=== PATIENT | male | born 1975 | race Caucasian/White ===

== ENCOUNTER 2016-06-08 15:48 | Emergency (ER) | payer BC ==
[2016-06-08 15:55] VITALS: BP 147/91
--- NOTE | 2016-06-08 16:44 | RAD ---
Indication: Right rib pain. 2 views of the right ribs demonstrates fracture of the right ninth rib posterior laterally. No significant displacement is noted. Additional 2 views of the chest demonstrates no pneumothorax. Lung roberts are clear. No pneumothorax is noted. IMPRESSION: Nondisplaced fracture of the right ninth rib. No pneumothorax is noted.
[2016-06-08] MEDS ORDERED: oxyCODONE/Acetamin 5/325 MG* TAB PO ONE (16:45)
--- NOTE | 2016-06-08 16:45 | ED ---
HPI Chest Pain - HPI Summary HPI Summary: Patient presents to ED with CC of right sided rib pain after a coughing fit 4 days ago. He states the pain is over the right ribs and radiates to the back. Pain has been stable until this morning when rolling over in bed. Pain is 10/ 10 and feels sharp. He has not tried anything for relief. Coughing and laying down makes the pain worse, nothing has made the pain better. Denies fever. Denies urinary symptoms. He has never had a broken rib before. - History of Current Complaint Chief Complaint: EDChestWallPain Time Seen by Provider: 06/08/16 15:57 Hx Obtained From: Patient Onset/Duration: Started Days Ago - 4 Timing: Intermittent Initial Severity: Moderate Current Severity: Severe Pain Intensity: 8 Pain Scale Used: 0-10 Numeric Chest Pain Location: Discrete at: - right sided chest radiates to back Chest Pain Radiates: Yes Chest Pain Radiates To:: Back Character: Dull/Aching Aggravating Factor(s): Position, Movement, Deep Breaths Alleviating Factor(s): Nothing Associated Signs and Symptoms: Positive: Cough - Risk Factors Pulmonary Embolism Risk Factors: Negative TAD Risk Factors: Negative - Allergy/Home Medications Allergies/Adverse Reactions: Allergies Allergy/AdvReac Type Severity Reaction Status Date / Time No Known Allergies Allergy Verified 06/08/16 16:57 PMH/Surg Hx/FS Hx/Imm Hx Previously Healthy: Yes Infectious Disease History: No Infectious Disease History: Denies: Traveled Outside the [place] in Last 30 Days - Social History Occupation: Employed Full-time Lives: With Family Alcohol Use: None Hx Substance Use: No Substance Use Type: Reports: None Hx Tobacco Use: Yes Smoking Status (MU): Former Smoker Review of Systems Constitutional: Negative Eyes: Negative Cardiovascular: Negative Positive: Shortness Of Breath, Cough Gastrointestinal: Negative Positive: no symptoms reported, see HPI Positive: Myalgia - right sided rib pain radiating to right back Skin: Negative Neurological: Negative All Other Systems Reviewed And Are Negative: Yes Physical Exam Triage Information Reviewed: Yes Vital Signs On Initial Exam: Initial Vitals Temp Pulse Resp BP Pulse Ox 97.8 F 108 16 147/91 97 06/08/16 15:51 06/08/16 15:51 06/08/16 15:51 06/08/16 15:51 03/12/17 15:51 Vital Signs Reviewed: Yes Appearance: Positive: Pain Distress Skin: Positive: Warm, Skin Color Reflects Adequate Perfusion Eyes: Positive: EOMI, Conjunctiva Clear Neck: Positive: Supple, No Lymphadenopathy Respiratory/Lung Sounds: Positive: Breath Sounds Present Cardiovascular: Positive: Normal, RRR Abdomen Description: Positive: Nontender, Soft Bowel Sounds: Positive: Present Musculoskeletal: Positive: Pain @ - right rib Neurological: Positive: Sensory/Motor Intact, Speech Normal Psychiatric: Positive: Normal - [place] Coma Scale Coma Scale Total: 15 Diagnostics - Vital Signs Vital Signs Temp Pulse Resp BP Pulse Ox 06/08/16 15:51 97.8 F 108 16 147/91 97 - Laboratory Lab Statement: Any lab studies that have been ordered have been reviewed, and results considered in the medical decision making process. - Radiology No standard instances Xray Interpretation: Positive (See Comments) Radiology Interpretation Completed By: Radiologist - IMPRESSION: Nondisplaced fracture of the right ninth rib. No pneumothorax is noted. Chest Pain Course/Dx - Course Course Of Treatment: Patient sent for rib and chest xray. Xray reveals: IMPRESSION: Nondisplaced fracture of the right ninth rib. No pneumothorax is noted. Patient given norco for relief and made aware of results. Ibuprofen encouraged. Prescription for pain medication sent. Follow up with PCP. Patient agreeable to plan. - Chest Pain Differential Diagnosis/HQI/PQRI: CHF, Chest Wall, Other: - rib - Diagnoses Provider Diagnoses: Fracture, rib Discharge - Discharge Plan Condition: Stable Disposition: HOME Prescriptions: Hydrocodone/Acetamin 10/325(NF [[place] 10/325 (NF)] 1 tab PO Q6H #20 tab MDD 4 Patient Education Materials: Rib Fracture (ED) Forms: *Work Release Referrals: Kevin ZAVALA,Mich Metcalf [Primary Care Provider] - Additional Instructions: Use moist heat to the area. Ibuprofen 600mg three times daily for pain and inflammation. For breakthrough pain not well controlled with ibuprofen, you may use your prescription medication. Follow up with your PCP. This may take several weeks to heal. If you experience any shortness of breath, come back to ED immediately.
== END 2016-06-08 17:49 | disposition home or self-care (01) ==
LOC: ED 15:48
DX: S22.31XA Fracture of one rib, right side, initial encounter for closed fracture (principal); R07.81 Pleurodynia; R05 Cough; R06.02 Shortness of breath; Z87.891 Personal history of nicotine dependence; X58.XXXA Exposure to other specified factors, initial encounter; Y93.9 Activity, unspecified; Y92.9 Unspecified place or not applicable
CPT/HCPCS: 99282; A9270-GY

== ENCOUNTER 2018-04-03 07:47 | Emergency (ER) | payer BC ==
[2018-04-03 08:05] VITALS: BP 138/87
--- NOTE | 2018-04-03 08:12 | UC ---
Throat Pain/Nasal Ervin HPI - HPI Summary HPI Summary: Started w/ 1 week of URI symptoms. Used his CPAP machine and then started to get sinus pressure, nasal discharge, 2 days of a sore throat which is now gone. Reports fever in the 100 range but cannot recall exact number. - History of Current Complaint Chief Complaint: UCRespiratory Stated Complaint: SINUS ISSUE Time Seen by Provider: 04/03/18 08:02 Hx Obtained From: Patient Pain Intensity: 0 Pain Scale Used: 0-10 Numeric Cough: Productive Associated Signs & Symptoms: Positive: Sinus Discomfort, Nasal Discharge, Fever. Negative: FB Sensation, Wheezing, Vomiting, Rash - Allergies/Home Medications Allergies/Adverse Reactions: Allergies Allergy/AdvReac Type Severity Reaction Status Date / Time No Known Allergies Allergy Verified 04/03/18 08:05 Home Medications: Home Medications Guaifenesin/Pseudoephedrne HCl [Mucinex D ER Tablet] 1 each PO DAILY PRN [History Confirmed 04/03/18] Ibuprofen TAB* [Advil TAB*] 200 mg PO Q6H PRN 04/03/18 [History Confirmed ] PMH/Surg Hx/FS Hx/Imm Hx Previously Healthy: Yes Respiratory History: Other - DUSTIN - Surgical History Surgical History: None - Social History Alcohol Use: Rare Substance Use Type: None Smoking Status (MU): Former Smoker Type: eCigarettes - Immunization History Most Recent Influenza Vaccination: none this year Review of Systems All Other Systems Reviewed And Are Negative: Yes Constitutional: Positive: Fever. Negative: Chills, Fatigue Skin: Negative: Rash ENT: Positive: Sore Throat, Nasal Discharge, Sinus Congestion, Sinus Pain/ Tenderness. Negative: Ear Ache Respiratory: Positive: Cough. Negative: Shortness Of Breath Cardiovascular: Negative: Chest Pain Gastrointestinal: Negative: Vomiting, Diarrhea Motor: Negative: Weakness Neurological: Negative: Headache Physical Exam Triage Information Reviewed: Yes Appearance: Well-Appearing Vital Signs: Initial Vital Signs Temp 98.6 F 04/03/18 08:03 Pulse 81 04/03/18 08:03 Resp 14 04/03/18 08:03 BP 138/87 04/03/18 08:03 Pulse Ox 97 04/03/18 08:03 Vital Signs Reviewed: Yes Eyes: Positive: Conjunctiva Clear ENT: Positive: Pharynx normal, Nasal congestion, TMs normal, Uvula midline. Negative: Sinus tenderness Neck exam: Normal Respiratory Exam: Normal Cardiovascular Exam: Normal Skin: Negative: Rashes Throat Pain/Nasal Course/Dx - Course Assessment/Plan: URI symptoms evolving into sinusitis over the past week. Afebrile today and vitals good. Exam was unremarkable. did not get flu shot this year but low liklihood of this. Likely viral etiology but offered antibiotics since he was asking. We did discuss the risks of over use of antibx and the chances of this not helping. He has appt w/ pulm re: cpap in 2 days which I encouraged him to follow up. - Differential Dx/Diagnosis Differential Diagnosis/HQI/PQRI: Influenza, Pharyngitis, URI Provider Diagnosis: Sinusitis Discharge - Sign-Out/Discharge Documenting (check all that apply): Patient Departure All imaging exams completed and their final reports reviewed: No Studies - Discharge Plan Condition: Good Disposition: HOME Prescriptions: Amoxicillin/Clavulanate TAB* [Augmentin TAB 875*] 875 mg PO BID 5 Days #10 tab Patient Education Materials: Sinusitis (ED) Referrals: Kevin ZAVALA,Mich Metcalf [Primary Care Provider] - Additional Instructions: I do not think you have a bacterial infection but I understand if you want to use the antibiotics. We reviewed the risk of taking antibiotics and the chances of this not helping since it may be viral. - Billing Disposition and Condition Condition: GOOD Disposition: Home
== END 2018-04-03 08:38 | disposition home or self-care (01) ==
LOC: UCEAST 07:47
DX: J32.9 Chronic sinusitis, unspecified (principal); Z87.891 Personal history of nicotine dependence
CPT/HCPCS: 99212; G0463

== ENCOUNTER 2018-12-13 22:34 | Emergency (ER) | payer BC ==
[2018-12-13 23:13] LABS: ABS Eosinophils 0.3 10^3/ul (0-0.6); ABS Lymphocytes 2.4 10^3/ul (1.0-4.8); ABS Monocytes 0.6 10^3/ul (0-0.8); ABS Neutrophils 4.8 10^3/ul (1.5-7.7); Eosinophil % 3.2 %; Hematocrit 47 % (42-52); Hemoglobin 16.2 g/dL (14.0-18.0); Lymphocyte % 29.3 %; Mean Corpuscular HGB Conc 34 g/dL (31-36); Mean Corpuscular Hemoglobin 30 pg (27-31); Mean Corpuscular Volume 87 fL (80-94); Mean Platelet Volume 8.6 fL (7.4-10.4); Nucleated Red Blood Cells % 0.1; Platelet Count 278 10^3/uL (150-450); Red Blood Count 5.42 10^6 /uL (4.18-5.48); Red Cell Distribution Width 13 % (10-15); White Blood Count 8.1 10^3/uL (3.5-10.8)
[2018-12-13 23:16] LABS: Urine Appearance Clear; Urine Bilirubin Negative (Negative); Urine Blood Negative (Negative); Urine Color Yellow; Urine Glucose Negative (Negative); Urine Ketones Negative (Negative); Urine Nitrite Negative (Negative); Urine Protein Negative (Negative); Urine Specific Gravity 1.017 (1.010-1.030); Urine Urobilinogen Negative (Negative)
[2018-12-13 23:22] LABS: Albumin 4.6 g/dL (3.2-5.2); Albumin/Globulin Ratio 1.8 (1-3); BUN/Creatinine Ratio 17.1 (8-20); EGFR African American 94.2 (>60); EGFR Non-African American 77.8 (>60); Globulin 2.6 g/dL (2-4); Potassium 4.1 mmol/L (3.5-5.0); Total Bilirubin 0.6 mg/dL (0.2-1.0); Total Protein 7.2 g/dL (6.4-8.9)
--- NOTE | 2018-12-14 01:51 | ED ---
Back Pain - HPI Summary HPI Summary: Patient is a 43 y/o M presenting to [facility] with complaints of left-sided lower back pain. Sx have been present for the past three weeks intermittently and have progressively worsened since onset. 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 He states that if he sits or lies on his back, pain is aggravated. He states that the pain is at its worst when awakening in the morning. While driving into work tonight, he states that he was not able to find a comfortable spot. He notes some radiation of pain to left pelvic area. No urinary Sx are noted. He denies tingling/numbness of feet and difficulty with ambulation. PMHx of sleep apnea is noted. Patient reports a previous episode of a sprained back many years ago. On triage, pain is rated 5/10. Home medications and allergies are reviewed. - History of Current Complaint Chief Complaint: EDFlankPain Stated Complaint: BACK/KINDEY PAIN PER PT Time Seen by Provider: 12/14/18 01:37 Hx Obtained From: Patient Onset/Duration: Lasting Weeks, Still Present Onset/Duration: Started Weeks Ago, Still Present Timing: Constant, Lasting Weeks Back Pain Location: Is Discrete @ - left lower back, Radiates To - left pelvic area Severity Currently: Moderate Pain Intensity: 5 Pain Scale Used: 0-10 Numeric Aggravating Symptom(s): Other - sitting or lying down Alleviating Symptom(s): Nothing Associated Signs And Symptoms: Positive: Other - negative - difficulty with ambulation, urinary Sx. Negative: Numbness, Tingling - Allergies/Home Medications Allergies/Adverse Reactions: Allergies Allergy/AdvReac Type Severity Reaction Status Date / Time No Known Allergies Allergy Verified 12/13/18 22:43 Home Medications: Home Medications NK [No Home Medications Reported] 12/14/18 [History Confirmed 12/14/18] PMH/Surg Hx/FS Hx/Imm Hx Sensory History: Denies: Hx Legally Blind, Hx Deafness Opthamlomology History: Denies: Hx Legally Blind EENT History: Denies: Hx Deafness Infectious Disease History: No Infectious Disease History: Denies: Traveled Outside the [place] in Last 30 Days - Family History Known Family History: Negative: Blood Disorder - Social History Alcohol Use: Rare Hx Substance Use: No Substance Use Type: Reports: None Hx Tobacco Use: Yes Smoking Status (MU): Former Smoker Type: eCigarettes Review of Systems Positive: no symptoms reported - no urinary Sx Positive: Myalgia - left lower back pain with radiation to left pelvic area Neurological: Other - negative - difficulty with ambulation Negative: Paresthesia, Numbness All Other Systems Reviewed And Are Negative: Yes Physical Exam - Summary Physical Exam Summary: Appearance: Well-appearing, Well-nourished, lying in bed comfortably Skin: Warm, dry, no obvious rash Eyes: sclera anicteric, no conjunctival pallor ENT: mucous membranes moist, pharynx appears normal Neck: Supple, nontender Respiratory: Clear to auscultation, no signs of respiratory distress Cardiovascular: Normal S1, S2. No murmurs. Normal distal pulses in tibial and radial bilaterally. Abdomen: Soft, nontender, normal active bowel sounds present Musculoskeletal: Normal, Strength/ROM Intact Neurological: A&Ox3, awake and alert, mentation is normal, speech is fluent and appropriate Psychiatric: affect is normal, does not appear anxious or depressed Triage Information Reviewed: Yes Vital Signs On Initial Exam: Initial Vitals Temp Pulse Resp BP Pulse Ox 98.3 F 83 20 150/93 97 12/13/18 22:41 12/13/18 22:41 12/13/18 22:41 12/13/18 22:41 12/13/18 22:41 Vital Signs Reviewed: Yes Diagnostics - Vital Signs Vital Signs Temp Pulse Resp BP Pulse Ox 12/14/18 01:35 77 126/81 96 12/13/18 22:41 98.3 F 83 20 150/93 97 - Laboratory Lab Results: Lab Results 12/13/18 12/13/18 12/13/18 Range/Units 22:54 22:54 22:56 WBC 8.1 (3.5-10.8) 10^3/uL RBC 5.42 (4.18-5.48) 10^6 /uL Hgb 16.2 (14.0-18.0) g/dL Hct 47 (42-52) % MCV 87 (80-94) fL MCH 30 (27-31) pg MCHC 34 (31-36) g/dL RDW 13 (10-15) % Plt Count 278 (150-450) 10^3/uL MPV 8.6 (7.4-10.4) fL Neut % (Auto) 59.5 % Lymph % (Auto) 29.3 % [place] % (Auto) 7.5 % Eos % (Auto) 3.2 % Baso % (Auto) 0.5 % Absolute Neuts (auto) 4.8 (1.5-7.7) 10^3/ul Absolute Lymphs (auto) 2.4 (1.0-4.8) 10^3/ul Absolute Monos (auto) 0.6 (0-0.8) 10^3/ul Absolute Eos (auto) 0.3 (0-0.6) 10^3/ul Absolute Basos (auto) 0.0 (0-0.2) 10^3/ul Absolute Nucleated RBC 0.0 10^3/ul Nucleated RBC % 0.1 Sodium 138 (135-145) mmol/L Potassium 4.1 (3.5-5.0) mmol/L Chloride 103 (101-111) mmol/L Carbon Dioxide 29 (22-32) mmol/L Anion Gap 6 (2-11) mmol/L BUN 18 (6-24) mg/dL Creatinine 1.05 (0.67-1.17) mg/dL Est GFR ( Amer) 94.2 (>60) Est GFR (Non-Af Amer) 77.8 (>60) BUN/Creatinine Ratio 17.1 (8-20) Glucose 118 H (70-100) mg/dL Calcium 9.0 (8.6-10.3) mg/dL Total Bilirubin 0.60 (0.2-1.0) mg/dL AST 23 (13-39) U/L ALT 48 (7-52) U/L Alkaline Phosphatase 70 (34-104) U/L Total Protein 7.2 (6.4-8.9) g/dL Albumin 4.6 (3.2-5.2) g/dL Globulin 2.6 (2-4) g/dL Albumin/Globulin Ratio 1.8 (1-3) Urine Color Yellow Urine Appearance Clear Urine pH 5.0 (5-9) Ur Specific [place] 1.017 (1.010-1.030) Urine Protein Negative (Negative) Urine Ketones Negative (Negative) Urine Blood Negative (Negative) Urine Nitrate Negative (Negative) Urine Bilirubin Negative (Negative) Urine Urobilinogen Negative (Negative) Ur Leukocyte Esterase Negative (Negative) Urine Glucose Negative (Negative) Result Diagrams: 12/13/18 22:54 12/13/18 22:54 Lab Statement: Any lab studies that have been ordered have been reviewed, and results considered in the medical decision making process. Back Pain Course/Dx - Course Course Of Treatment: Patient is a 43 y/o M presenting to [facility] with complaints of left-sided lower back pain. Sx have been present for the past three weeks intermittently and have progressively worsened since onset. 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 He states that if he sits or lies on his back, pain is aggravated. He states that the pain is at its worst when awakening in the morning. While driving into work tonight, he states that he was not able to find a comfortable spot. He notes some radiation of pain to left pelvic area. No urinary Sx are noted. He denies tingling/numbness of feet and difficulty with ambulation. Physical exam is unremarkable. Patient was discharged to home and was advised to treat Sx with OTC meds and topical lidocaine. - Diagnoses Provider Diagnoses: Lower back pain Discharge ED - Sign-Out/Discharge Documenting (check all that apply): Patient Departure - DISCHARGE Patient Received Moderate/Deep Sedation with Procedure: No - Discharge Plan Condition: Good Disposition: HOME Patient Education Materials: Acute Low Back Pain (ED) Referrals: Kevin ZAVALA,Mich Metcalf [Primary Care Provider] - As Soon As Possible Additional Instructions: Your exam and the tests we did tonight did not show any "red flags" for a dangerous cause of your back pain. For now I would recommend OTC pain medication and some find topical lidocaine patches very helpful. I would also recommend checking out Dr. Aurelio Agosto' bit on youtube on low back pain. - Billing Disposition and Condition Condition: GOOD Disposition: Home - Attestation Statements Document Initiated by Scribe: Yes Documenting Scribe: ALBERT MOSQUEDA Provider For Whom Rain is Documenting (Include Credential): ARELI MCKENZIE MD Scribe Attestation: I, ALBERT MOSQUEDA, scribed for ARELI MCKENZIE MD on 12/18/18 at 0615. Scribe Documentation Reviewed: Yes Provider Attestation: The documentation as recorded by the ALBERT espinal accurately reflects the service I personally performed and the decisions made by me, ARELI MCKENZIE MD Status of Rain Document: Viewed
[2018-12-14 02:18] VITALS: BP 0/0
== END 2018-12-14 02:17 | disposition home or self-care (01) ==
LOC: ED 22:34
DX: M54.5 Low back pain (principal); Z87.891 Personal history of nicotine dependence
CPT/HCPCS: 36415; 80053; 81003; 85025; 99282